=== PATIENT | male | born 1945 | race Caucasian/White ===

== ENCOUNTER 2022-08-18 10:45 | Outpatient (RCR) | payer MEDICARE, BC | END 2022-08-19 | disposition home or self-care (01) | LOC: PT.GENESIS | DX: M25.562 Pain in left knee (principal); M25.561 Pain in right knee; Z96.653 Presence of artificial knee joint, bilateral ==

== ENCOUNTER 2023-02-15 09:15 | Outpatient (RCR) | payer MEDICARE, BC | END 2023-02-18 | disposition home or self-care (01) | LOC: PT.GENESIS | DX: M23.51 Chronic instability of knee, right knee (principal); M23.52 Chronic instability of knee, left knee; Z96.653 Presence of artificial knee joint, bilateral | CPT/HCPCS: G0283-GP ==

== ENCOUNTER 2023-03-22 09:24 | Outpatient (RCR) | payer MEDICARE, BC | END 2023-04-20 | disposition home or self-care (01) | LOC: PT.GENESIS | DX: M25.552 Pain in left hip (principal); M54.50 Low back pain, unspecified; M25.561 Pain in right knee; M25.562 Pain in left knee; Z96.653 Presence of artificial knee joint, bilateral ==

== ENCOUNTER 2023-05-18 10:00 | Outpatient (RCR) | payer MEDICARE, BC | END 2023-05-21 | disposition home or self-care (01) | LOC: PT.GENESIS | DX: M25.552 Pain in left hip (principal); M54.50 Low back pain, unspecified; R53.1 Weakness; Z96.653 Presence of artificial knee joint, bilateral ==

== ENCOUNTER 2023-06-20 14:30 | Outpatient (RCR) | payer MEDICARE, BC | END 2023-06-21 | disposition home or self-care (01) | LOC: PT.GENESIS | DX: M25.561 Pain in right knee (principal); M25.562 Pain in left knee; R53.1 Weakness; M25.552 Pain in left hip; M54.50 Low back pain, unspecified; Z96.653 Presence of artificial knee joint, bilateral ==

== ENCOUNTER 2023-07-10 10:30 | Outpatient (RCR) | payer MEDICARE, BC | END 2023-07-20 | disposition home or self-care (01) | LOC: PT.GENESIS | DX: M25.552 Pain in left hip (principal); M54.50 Low back pain, unspecified; R53.1 Weakness; Z96.653 Presence of artificial knee joint, bilateral ==

== ENCOUNTER 2024-02-13 11:15 | Outpatient (RCR) | payer MEDICARE, BC | END 2024-02-19 | disposition home or self-care (01) | LOC: PT.GENESIS | DX: M67.971 Unspecified disorder of synovium and tendon, right ankle and foot (principal); M67.972 Unspecified disorder of synovium and tendon, left ankle and foot ==